=== PATIENT | male | born 1975 | race Caucasian/White ===

== ENCOUNTER 2017-07-22 17:20 | Emergency (ER) | END 2017-07-22 18:35 | disposition left against medical advice (07) ==

== ENCOUNTER 2018-09-07 09:04 | Day surgery (SDC) | payer BC ==
[~2018-09-07] VITALS: Ht 170.2 cm; Wt 114.6 kg
[~2018-09-07 09:04] MED LIST: PROPOFOL 200 MG INJ ONE
[2018-09-07 10:37] VITALS: Ht 170.2 cm; Wt 114.6 kg
--- NOTE | 2018-09-07 10:38 | PREAC ---
Date/Time of Note Date/Time of Note DATE: 09/07/18 TIME: 10:38 Anesthesia Eval and Record Evaluation Time Pre-Procedure Interview DATE: 09/07/18 TIME: 10:38 Age 43 Sex male NPO: 8 hrs Preoperative diagnosis Dysphagia, change in bowel habit Planned procedure EGD, colonoscopy Past Medical History Past Medical History: Includes Cardio: HTN, Dyslipidemia Endo: Diabetes Pulm: Smoking Hx, Sleep Apnea, Home CPAP GI: Morbid obesity Surgery & Anesthesia Issues No known issue Meds Anticoagulation: No Beta Rosalva within 24 hr: No Reason Beta Rosalva not given: Pt. not on B-Rosalva Meds reviewed: Yes Allergies Allergies Reviewed: Yes Labs/Studies Labs Reviewed: Reviewed by anesthesiologist test: N/A Pre-procedure Exam Airway: Adequate mouth opening Mallampati: Mallampati II Teeth: Normal Lung: Normal Heart: Normal ASA Physical Status ASA physical status: 3 Emergency: None Planned Anesthetic General/MAC: MAC Planned Pain Management Parenteral pain med Pre-operative Attestations Prior to commencing anesthesia and surgery, the patient was re-evaluated, there was verification of: *The patient's identity *The results of appropriate recent lab work and preoperative vital signs *The above evaluation not changing prior to induction *Anesthetic plan, risk benefits, alternative and complications discussed with patient/family; questions answered; patient/family understands, accepts and wishes to proceed. NATIVIDAD ANDERSON MD Sep 07, 2018 10:38
[2018-09-07 10:39] VITALS: BP 160/89; PULSE 104; RESP 18
[2018-09-07] MEDS ORDERED: ASA 81 (10:42)
[2018-09-07] MEDS ORDERED: HTN MED X2 (10:42)
[2018-09-07] MEDS ORDERED: INSULIN PUMP (10:42)
[2018-09-07] MEDS ORDERED: PROPOFOL 40 ML ONE (10:46)
[2018-09-07 11:55] VITALS: BP 135/77; RESP 59
--- NOTE | 2018-09-07 12:09 | PAC ---
Date/Time of Note Date/Time of Note DATE: 09/07/18 TIME: 12:08 Post-Anesthesia Notes Post-Anesthesia Note Last documented vital signs Vital Signs Date Temp Pulse Resp B/P (MAP) Pulse Ox O2 O2 Flow FiO2 Time Delivery Rate 09/07/18 59 135/77 96 11:55 (96) 09/07/18 98.3 104 Room Air 10:39 Activity: WNL Respiratory function: WNL Cardiovascular function: WNL Mental status: Baseline Pain reasonably controlled: Yes Hydration appropriate: Yes Nausea/Vomiting absent: Yes Comments BT:98.3 NATIVIDAD ANDERSON MD Sep 07, 2018 12:09
== END 2018-09-07 12:25 | disposition home or self-care (01) ==
LOC: GIL 09:04
PROVIDERS: ATTEND Internal Medicine Gastroenterology
DX: R19.4 Change in bowel habit (principal); K64.8 Other hemorrhoids; K44.9 Diaphragmatic hernia without obstruction or gangrene; K21.0 Gastro-esophageal reflux disease with esophagitis; K29.70 Gastritis, unspecified, without bleeding
CPT/HCPCS: 43239; 45378; 82962; 88305; Z7610